=== PATIENT | female | born 1950 | race African-American/Black ===

== ENCOUNTER 2022-08-18 20:13 | Emergency (ER) | payer SELFPAY ==
[~2022-08-18] VITALS: Ht 165.1 cm; Wt 82.0 kg
[2022-08-18] MEDS ORDERED: IPRATROPIUM BROMIDE (0.02%) 0.5MG/2.5ML NEB HHN STA (23:27)
[2022-08-18] MEDS ORDERED: ALBUTEROL (0.083%) 2.5MG/3ML NEB HHN STA (23:27)
[2022-08-18] MEDS ORDERED: PREDNISONE 20MG TABLET PO STA (23:27)
[2022-08-18 23:47] LABS: BASOPHILS % 0.9 % (0.0-2.0); EOSINOPHILS % 3.4 % (0.0-5.0); HEMOGLOBIN. 11.7 g/dL (12.0-16.0); LYMPHOCYTES % 17.8 % (20.0-50.0); MEAN CORPUSCULAR HEMOGLOBIN 27.7 pg (28.0-32.0); MEAN CORPUSCULAR VOLUME 85.6 fL (81.0-99.0); MEAN PLATELET VOLUME 8.2 fl (7.4-10.4); NEUTROPHILS % 64.9 % (40.0-76.0); PLATELET 270 x1000/uL (130-400); RED BLOOD CELL COUNT 4.21 mill/uL (4.2-5.4); RED CELL DISTRIBUTION WIDTH 17.8 % (11.6-14.6)
[2022-08-18 23:52] LABS: CHLORIDE 108 mEq/L (98-107)
[2022-08-19 00:03] LABS: ETHANOL BLOOD < 10 mg/dL (-10)
[2022-08-19] MEDS ORDERED: P50 MT (02:13)
[2022-08-19] MEDS ORDERED: ACETAMINOPHEN 325MG TABLET PO ONE (06:15)
[2022-08-19 09:22] VITALS: BP 133/77
== END 2022-08-19 09:26 | disposition home or self-care (01) ==
LOC: ER 20:13
DX: M79.10 Myalgia, unspecified site (principal); R06.02 Shortness of breath; G89.29 Other chronic pain; J45.909 Unspecified asthma, uncomplicated; M19.90 Unspecified osteoarthritis, unspecified site
CPT/HCPCS: 36415; 71045; 80053; 80320; 83690; 83880; 84484; 85025; 93005; 94640; 99285; J7512; Z7610; G0480